=== PATIENT | male | born 1955 | race Caucasian/White ===

== ENCOUNTER → 2018-09-07 | Outpatient (CLI) | payer OTHER ==
[~2018-09-07] MED LIST: GADOBUTROL 10 ML VIAL IVP ONE
== END ==
LOC: FIMAGING 11:46
PROVIDERS: ATTEND Physician Assistant Medical
DX: F51.01 Primary insomnia (principal); R25.1 Tremor, unspecified; R90.82 White matter disease, unspecified
CPT/HCPCS: A9585